=== PATIENT | male | born 2000 ===

== ENCOUNTER 2021-04-13 11:31 | Emergency (ER) | payer SELFPAY ==
[2021-04-13] MEDS ORDERED: IPRATROPIUM 0.02% NEBU 2.5 ML IH ONE (12:00)
[2021-04-13] MEDS ORDERED: ALBUTEROL 2.5 MG/3 ML NEBU IH ONE (12:00)
[2021-04-13] MEDS ORDERED: dexAMETHasone 20 MG/5 ML VIAL IM ONE (12:00)
--- NOTE | 2021-04-13 12:14 | Emergency Department Report ---
- General Chief Complaint: Upper Respiratory Infection Stated Complaint: HARD TO BREATHE Pain in ribs Time Seen by Provider: 04/13/21 11:56 Source: patient Mode of arrival: Ambulatory Limitations: No Limitations - History of Present Illness Initial Comments: Patient is a 20-year-old male presents emergency room with complaints of a cough with mucus production that began 5 days ago. He has associated nausea, vomiting, shortness of breath, wheezing, rib pain after frequent coughing. He denies any fever, diarrhea, sore throat, ear pain, abdominal pain. Patient states that his niece was sick with similar symptoms prior to him becoming sick. He states he did travel to [place] a week ago. He denies any past medical history. No allergies to medications. He endorses tobacco and marijuana use. - Related Data Previous Rx's Medication Instructions Recorded Last Taken Type Albuterol Sulfate [Proventil Hfa] 1 - 2 puff IH TID PRN #1 hfa.aer.ad 04/13/21 Unknown Rx Azithromycin [Zithromax TAB] 250 mg PO QDAY 5 Days #6 tablet 04/13/21 Unknown Rx Benzonatate [Tessalon Perles] 100 mg PO Q8HR PRN #14 capsule 04/13/21 Unknown Rx Prednisone [predniSONE 10 mg 10 mg PO .TAPER #1 tab.ds.pk 04/13/21 Unknown Rx (6-Day Pack, 21 Tabs)] Allergies Allergy/AdvReac Type Severity Reaction Status Date / Time No Known Allergies Allergy Unverified 04/13/21 11:45 ED Review of Systems ROS: Stated complaint: HARD TO BREATHE Pain in ribs Other details as noted in HPI Comment: All other systems reviewed and negative ED Past Medical Hx - Past Medical History Previous Medical History?: No - Surgical History Past Surgical History?: No - Medications Home Medications: Home Medications Medication Instructions Recorded Confirmed Last Taken Type Albuterol Sulfate [Proventil Hfa] 1 - 2 puff IH TID PRN #1 hfa.aer.ad 04/13/21 Unknown Rx Azithromycin [Zithromax TAB] 250 mg PO QDAY 5 Days #6 tablet 04/13/21 Unknown Rx Benzonatate [Tessalon Perles] 100 mg PO Q8HR PRN #14 capsule 04/13/21 Unknown Rx Prednisone [predniSONE 10 mg 10 mg PO .TAPER #1 tab.ds.pk 04/13/21 Unknown Rx (6-Day Pack, 21 Tabs)] ED Physical Exam - General Limitations: No Limitations General appearance: alert, in no apparent distress - Head Head exam: Present: atraumatic, normocephalic - Eye Eye exam: Present: normal appearance - ENT ENT exam: Present: mucous membranes moist - Respiratory Respiratory exam: Present: wheezes (expiratory and inspiratory throughout), rhonchi (bilaterally ), prolonged expiratory. Absent: respiratory distress, rales, stridor, chest wall tenderness, accessory muscle use, decreased breath sounds - Cardiovascular Cardiovascular Exam: Present: regular rate, normal rhythm, normal heart sounds. Absent: systolic murmur, diastolic murmur, rubs, gallop - Neurological Exam Neurological exam: Present: alert, oriented X3 - Psychiatric Psychiatric exam: Present: normal affect, normal mood - Skin Skin exam: Present: warm, dry, intact ED Course Vital Signs 04/13/21 04/13/21 04/13/21 11:46 12:32 13:45 Temperature 98.9 F Pulse Rate 81 76 Respiratory 20 24 17 Rate Blood Pressure 127/92 124/81 [Right] O2 Sat by Pulse 100 97 Oximetry ED Medical Decision Making - Radiology Data Radiology results: report reviewed Ordering Physician: LM SOFIA Date of Service: 04/13/21 Procedure(s): XR chest routine 2V Accession Number(s): [id number] cc: LM SOFIA Fluoro Time In Minutes: CHEST 2 VIEWS INDICATION / CLINICAL INFORMATION: cough, wheezing, SOB. COMPARISON: None available. FINDINGS: SUPPORT DEVICES: None. HEART / MEDIASTINUM: No significant abnormality. LUNGS / PLEURA: No significant pulmonary or pleural abnormality. No pneumothorax. ADDITIONAL FINDINGS: No significant additional findings. IMPRESSION: 1. No acute findings. Signer Name: Mandeep Stoddard MD Signed: 04/13/2021 12:32 PM Workstation Name: [id number] Transcribed By: JAZMIN Dictated By: MADONNA STODDARD MD Electronically Authenticated By: MADONNA STODDARD MD Signed Date/Time: 04/13/21 1232 DD/ 1232 TD/TT: - Medical Decision Making Patient is a 20-year-old male presents emergency room with complaints of a cough with mucus production that began 5 days ago. He has associated nausea, vomiting, shortness of breath, wheezing, rib pain after frequent coughing. He denies any fever, diarrhea, sore throat, ear pain, abdominal pain. Patient states that his niece was sick with similar symptoms prior to him becoming sick. He states he did travel to [place] a week ago. He denies any past medical history. No allergies to medications. He endorses tobacco and marijuana use. Vitals are normal. On exam patient has diffuse expiratory and inspiratory wheezing. Chest x-ray with no acute process. Patient given continuous neb treatment and steroids IM. On reexamination wheezing has improved. Symptoms likely related to acute bronchitis. Patient given prescription for medications. Discussed smoking cessation. Advised patient Please take medication as prescribed. Follow-up with your primary care doctor. Please stop smoking. Return to emergency room for new or symptoms. Critical care attestation.: If time is entered above; I have spent that time in minutes in the direct care of this critically ill patient, excluding procedure time. ED Disposition Clinical Impression: Tobacco use Acute bronchitis Qualifiers: Bronchitis organism: unspecified organism Qualified Code(s): J20.9 - Acute bronchitis, unspecified Disposition: DC-01 TO HOME OR SELFCARE Is pt being admited?: No Does the pt Need Aspirin: No Condition: Stable Instructions: Steps to Quit Smoking, Acute Bronchitis, Adult, Acute Bronchitis (ED) Additional Instructions: Please take medication as prescribed. Follow-up with your primary care doctor. Please stop smoking. Return to emergency room for new or symptoms. Prescriptions: Prednisone [predniSONE 10 mg (6-Day Pack, 21 Tabs)] 10 mg PO .TAPER #1 tab.ds.pk Albuterol Sulfate [Proventil Hfa] 1 - 2 puff IH TID PRN #1 hfa.aer.ad PRN Reason: shortness of breath/wheezing Benzonatate [Tessalon Perles] 100 mg PO Q8HR PRN #14 capsule PRN Reason: cough Azithromycin [Zithromax TAB] 250 mg PO QDAY 5 Days #6 tablet Referrals: BRISEIDA BLOOM MD [Staff Physician] - 3-5 Days [facility] [Provider Group] - 3-5 Days Forms: Work/School Release Form(ED) Time of Disposition: 13:35 Print Language: SAO TOMEAN
--- NOTE | 2021-04-13 12:36 | XRay Report ---
CHEST 2 VIEWS INDICATION / CLINICAL INFORMATION: cough, wheezing, SOB. COMPARISON: None available. FINDINGS: SUPPORT DEVICES: None. HEART / MEDIASTINUM: No significant abnormality. LUNGS / PLEURA: No significant pulmonary or pleural abnormality. No pneumothorax. ADDITIONAL FINDINGS: No significant additional findings. IMPRESSION: 1. No acute findings. Signer Name: Mandeep Xie MD Signed: 04/13/2021 12:32 PM Workstation Name: [id number]
[2021-04-13 14:01] VITALS: BP 124/81
== END 2021-04-13 14:00 | disposition home or self-care (01) ==
LOC: ED 11:31
DX: J20.9 Acute bronchitis, unspecified (principal); Z72.0 Tobacco use; Z79.2 Long term (current) use of antibiotics; Z79.899 Other long term (current) drug therapy
CPT/HCPCS: 71046; 94644; 96372; 99283; J1100